=== PATIENT | female | born 1945 | race Caucasian/White ===

== ENCOUNTER 2019-07-12 08:51 | Outpatient (CLI) | payer MEDICARE, BC ==
[2019-07-12 10:16] LABS: BASOPHILS # (AUTO) 0.01 x10^3/uL (0-0.1); BASOPHILS % (AUTO) 0 % (0-1); EOSINOPHILS # (AUTO) 0.02 x10^3/uL (0-0.4); EOSINOPHILS % (AUTO) 0 % (1-7); LYMPHOCYTES # (AUTO) 0.68 x10^3/uL (1-3.4); LYMPHOCYTES % (AUTO) 7 % (22-44); MD NO; MEAN CORPUSCULAR HGB CONC 32.9 g/dL (32.4-35.8); MEAN CORPUSCULAR VOLUME 91.1 fL (80-100); MEAN PLATELET VOLUME 7.5 fL (7.4-10.4); MONOCYTES # (AUTO) 0.37 x10^3/uL (0.2-0.8); MONOCYTES % (AUTO) 4 % (2-9); NEUTROPHILS # (AUTO) 8.77 x10^3/uL (1.8-6.8); NEUTROPHILS % (AUTO) 89 % (42-75); PLATELET COUNT 280 x10^3/uL (130-400); RED BLOOD COUNT 4.51 x10^6/uL (3.82-5.3); RED CELL DISTRIBUTION WIDTH 15.1 % (9.6-15.2)
[2019-07-12 10:22] LABS: INTERNATIONAL NORMALIZED RATIO 0.95 (0.93-1.1); PROTHROMBIN TIME 10.1 Seconds (9.6-11.5)
[2019-07-12 10:23] LABS: ALANINE AMINOTRANSFERASE 30 U/L (12-78); ALBUMIN 3.7 g/dL (3.4-5.0); ANION GAP 5 mmol/L (5-15); CALCIUM 9.1 mg/dL (8.5-10.1); CHLORIDE 100 mmol/L (98-107); CREATININE 0.61 mg/dL (0.55-1.02)
[2019-07-12 10:25] LABS: MICROSCOPIC NOT IND
[2019-07-12 10:25] LABS: ALKALINE PHOSPHATASE 150 U/L (45-117); BILIRUBIN,TOTAL 0.4 mg/dL (0.2-1.0); TOTAL PROTEIN 8.2 g/dL (6.4-8.2)
[2019-07-12 10:30] LABS: CULTURE INDICATED? NO
[2019-07-12] MEDS ORDERED: CHOL10003 PO (13:00)
[2019-07-12] MEDS ORDERED: ASCO500T8 PO (13:00)
[2019-07-12] MEDS ORDERED: ASPI-496 PO (13:00)
[2019-07-12] MEDS ORDERED: TRAM50TA2 PO (13:00)
[2019-07-12] MEDS ORDERED: CYAN-27 PO (13:00)
[2019-07-12] MEDS ORDERED: RALO60TA PO (13:00)
[2019-07-12] MEDS ORDERED: ACET325T14 PO (13:00)
== END 2019-07-12 23:59 | disposition home or self-care (01) ==
LOC: STAR 08:51
PROVIDERS: ATTEND Orthopaedic Surgery Orthopaedic Surgery of the Spine
DX: Z01.818 Encounter for other preprocedural examination (principal); M84.48XA Pathological fracture, other site, initial encounter for fracture
CPT/HCPCS: 36415; 71046; 80053; 80074; 81003; 85025; 85610; 85651; 85730; 87806; 93005; G0475

== ENCOUNTER 2019-07-27 11:46 | Day surgery (SDC) | payer MEDICARE, OTHER ==
[~2019-07-27] VITALS: Ht 160 cm; Wt 74.1 kg
[~2019-07-27 11:46] MED LIST: ACET325T14 PO; ASCO500T8 PO; ASPI-496 PO; BUPIVACAINE/PF-EPI 0.5% 1:200K ONE; CHOL10003 PO; CYAN-27 PO; LIDOCAINE/PF 1%-EPI 1:200K, 30 ML ONE; RALO60TA PO; TRAM50TA2 PO
[2019-07-27] MEDS ORDERED: LACTATED RINGERS 1,000 ML IV SCH (11:51)
[2019-07-27] MEDS ORDERED: GABAPENTIN 300 MG CAPSULE PO ONE (12:00)
[2019-07-27] MEDS ORDERED: ACETAMINOPHEN 500 MG TABLET PO ONE (12:00)
[2019-07-27] MEDS ORDERED: PROPOFOL 10 MG/ML, 20ML ONE (12:47)
[2019-07-27] MEDS ORDERED: FENTANYL PF 100 MCG/2ML ONE (12:47)
[2019-07-27] MEDS ORDERED: SUCCINYLCHOLINE 20 MG/ML, 10ML ONE (12:48)
[2019-07-27] MEDS ORDERED: LIDOCAINE-MPF 2% ,5ML ONE (12:48)
[2019-07-27] MEDS ORDERED: ROCURONIUM 10MG/ML,5ML ONE (12:48)
[2019-07-27] MEDS ORDERED: CEFAZOLIN 1,000 MG ONE (13:44)
[2019-07-27] MEDS ORDERED: SUGAMMADEX 200 MG/2 ML IVPush ONE (13:44)
[2019-07-27] MEDS ORDERED: VASOPRESSIN 20 UNIT/ML, 1ML ONE (13:44)
[2019-07-27] MEDS ORDERED: PHENYLEPHRINE 10 MG/ML ONE (13:44)
[2019-07-27] MEDS ORDERED: ONDANSETRON 2MG/ML, 2ML ONE (14:27)
[2019-07-27] MEDS ORDERED: DEXAMETHASONE 4 MG/ML, 1ML ONE ×2 (14:27)
[2019-07-27] MEDS ORDERED: OXYcodone 5 MG/5 ML ORAL.SOL UDC PO PRN (14:30)
[2019-07-27] MEDS ORDERED: PROMETHAZINE 25 MG/ML, 1ML IV PRN (14:30)
[2019-07-27] MEDS ORDERED: MORPHINE SULFATE 4 MG/ML, 1ML IVPush PRN (14:30)
[2019-07-27] MEDS ORDERED: OMNIPAQUE 180 MG/ML, 20ML VIAL IT ONE (14:30)
[2019-07-27] MEDS ORDERED: FENTANYL PF 100 MCG/2ML IV PRN (14:30)
== END 2019-07-27 17:00 | disposition home or self-care (01) ==
LOC: OUT 11:46
PROVIDERS: ATTEND Orthopaedic Surgery Orthopaedic Surgery of the Spine
DX: M80.88XA Other osteoporosis with current pathological fracture, vertebra(e), initial encounter for fracture (principal); Z88.0 Allergy status to penicillin
CPT/HCPCS: 22513; 22515; 72080; 88307; 88311; C1713; J0330; J0690; J1100; J2370; J2405; J2704; J3010; J3490; J7120; Q9965